=== PATIENT | male | born 1945 | race Two or more races ===

== ENCOUNTER 2017-08-02 08:21 | Emergency (ER) | payer SELFPAY ==
[~2017-08-02] VITALS: Ht 170.2 cm; Wt 64.6 kg
[2017-08-02 09:57] LABS: MEAN CORPUSCULAR HEMOGLOBIN 27.5 pg (27.5-34.5); MEAN CORPUSCULAR VOLUME 83.4 fL (81-97); RED CELL DISTRIBUTION WIDTH 14.4 % (9.4-14.8)
[2017-08-02 10:02] LABS: ALANINE AMINOTRANSFERASE 33 U/L (12-78); ALBUMIN 3.6 g/dL (3.4-5.0); ANION GAP 5 mmol/L (5-15); CALCIUM 9.3 mg/dL (8.5-10.1); CHLORIDE 109 mmol/L (98-107); CREATININE 1.18 mg/dL (0.7-1.3)
[2017-08-02 10:04] LABS: ALKALINE PHOSPHATASE 70 U/L (45-117); TOTAL PROTEIN 7.4 g/dL (6.4-8.2)
[2017-08-02 10:24] VITALS: BP 125/83
[2017-08-02 10:26] LABS: BASOPHILS # (AUTO) 0.07 x10^3/uL (0-0.1); BASOPHILS % (AUTO) 2 % (0-1); EOSINOPHILS # (AUTO) 0.05 x10^3/uL (0-0.4); EOSINOPHILS % (AUTO) 1 % (1-7); LYMPHOCYTES # (AUTO) 1.72 x10^3/uL (1-3.4); LYMPHOCYTES % (AUTO) 40 % (22-44); MD SCAN; MEAN PLATELET VOLUME 9.6 fL (7.4-10.4); MONOCYTES # (AUTO) 0.43 x10^3/uL (0.2-0.8); MONOCYTES % (AUTO) 10 % (2-9); NEUTROPHILS # (AUTO) 2.07 x10^3/uL (1.8-6.8); NEUTROPHILS % (AUTO) 48 % (42-75); PLATELET COUNT 202 x10^3/uL (130-400)
== END 2017-08-02 11:01 | disposition home or self-care (01) ==
LOC: ED 10:55
DX: R10.11 Right upper quadrant pain (principal); G89.29 Other chronic pain
CPT/HCPCS: 36415; 80053; 85025; 99284

== ENCOUNTER 2018-10-20 13:09 | Emergency (ER) | payer MEDICARE ==
[~2018-10-20] VITALS: Ht 170.2 cm; Wt 65.0 kg
--- NOTE | 2018-10-20 13:30 | NUR ---
PT BIB [facility]. THEY REPORT THAT [facility] CALLED AND SAID THAT THE PT COULD NOT STAND BECAUSE HE WAS DRUNK. PT IS ALERT AND ORIENTED X 4 AND FOLLOWS COMMANDS. PT WAS ABLE TO STAND AT EDGE OF BED AND URINATE IN A URINAL. PT IS NOW RESTING IN BED. VSS. NAD.
[2018-10-20 14:41] VITALS: BP 110/67
--- NOTE | 2018-10-20 14:42 | NUR ---
Pt resting in bed, resp even and unlabored, NADN.
--- NOTE | 2018-10-20 17:05 | NUR ---
AMBULATED WITH STEADY GAIT TO THE [facility]
--- NOTE | 2018-10-20 22:01 | NUR ---
late entry: cellphone and 2.45 dollars in change placed in psych locker for safe keeping.
== END 2018-10-20 17:06 | disposition home or self-care (01) ==
LOC: ED 17:00
DX: F10.121 Alcohol abuse with intoxication delirium (principal); G92 Toxic encephalopathy; Z72.9 Problem related to lifestyle, unspecified
CPT/HCPCS: 99283